=== PATIENT | female | born 1935 | race Caucasian/White ===

== ENCOUNTER → 2017-06-22 | Outpatient (CLI) | payer MEDICARE ==
[~2017-06-22] MED LIST: ACTONEL150 MG PO; ADULT LOW DOSE81 MG PO; ALENDRONATE SOD35 MG PO; ALPRAZOLAM 0.0.25 M1 PO; APAP500 PO; B COMPLEX-VITA1 EACH; BUTRANS1 EAC1 TD; CALCIUM +D & M1 EACH PO; CALCIUM 500 +1 EAC5 PO; CARDIZEM CD120 MG PO; CARDIZEM CD240 MG PO; CARVEDILOL12.5 MG PO; CEFUROXIME250 MG PO; CELEBREX 200 M200 MG PO; COLACE 100 MG100 MG PO; COUMADIN 1MG TAB1 M1 PO; COUMADIN 2 MG TA2 M1 PO; COUMADIN 5 MG TA5 M1 PO; CYCLOBENZAPRINE5 MG PO; CYMBALTA30 MG PO; DIGOXIN250 MCG PO; DILTIAZEM 24HR180 M2 PO; FENTANYL PA12 MCG/H1 TP; FENTANYL TRANSDERM; FISH OIL 1,0001 EAC5 PO; FLORASTOR250 MG PO; HYDROCODON-ACE1 EAC7 PO; HYDROCODONE-AP1 EAC6 PO; IMODIUM A-D2 MG PO; IRON325 PO; KLOR-CON 1010 MEQ PO; LASIX 20 MG TAB20 MG; LASIX 40 MG TAB40 M2 PO; MACROBID 100 M100 M1 PO; MACULAR HEALTH1 EAC1 PO; MILK OF MA2400 MG/10 PO; MIRALAX17 GM PO; MIRALAX255 GM PO; MURINE EAR WAX15 ML; NORCO 10-325 T1 EACH PO; NORCO 5-325 TA1 EACH PO; OXYCODONE HCL 55 MG PO; OXYCODONE HCL10 MG PO; PRAVACHOL40 MG PO; PREMARIN VAGI42.5 G1; PREMARIN VAGI42.5 G1 TOP; PREMARIN0.625 MG PO; PROLIA60 MG/1 ML; PROLIA60 MG/1 ML SUBQ; PYRIDIUM200 MG PO; RECLAST 55 MG/100 M; REMERON15 MG PO; TOPROL XL50 MG; TYLENOL EXTRA500 MG PO; XARELTO15 MG PO; XIFAXAN550 M1 PO
== END ==
LOC: M.RAD 06-11 09:00
DX: N91.2 Amenorrhea, unspecified (principal); M47.896 Other spondylosis, lumbar region; Z78.0 Asymptomatic menopausal state

== ENCOUNTER → 2018-03-10 | Outpatient (CLI) | payer MEDICARE | LOC: M.RAD 10:41 | DX: Z12.31 Encounter for screening mammogram for malignant neoplasm of breast (principal) ==

== ENCOUNTER 2018-04-03 10:59 | Inpatient (IN) | payer MEDICARE ==
[~2018-04-03] VITALS: Ht 160 cm; Wt 57.9 kg
[~2018-04-03 10:59] MED LIST changes: -ALENDRONATE SOD35 MG PO; -CEFUROXIME250 MG PO; -CYMBALTA30 MG PO; -DIGOXIN250 MCG PO; -FLORASTOR250 MG PO; -MACULAR HEALTH1 EAC1 PO; -OXYCODONE HCL10 MG PO; -REMERON15 MG PO; -TYLENOL EXTRA500 MG PO
[2018-04-03 11:01] VITALS: BP 152/52
[2018-04-03] MEDS ORDERED: OXYCODONE HCL10 MG PO (11:08)
[2018-04-03] MEDS ORDERED: CYMBALTA30 MG PO (11:09)
[2018-04-03] MEDS ORDERED: MACULAR HEALTH1 EAC1 PO (11:09)
[2018-04-03] MEDS ORDERED: COUMADIN 1MG TAB1 M1 PO (11:09)
[2018-04-03] MEDS ORDERED: TYLENOL EXTRA500 MG PO (11:10)
[2018-04-03] MEDS ORDERED: ALENDRONATE SOD35 MG PO (11:11)
[2018-04-03 11:47] LABS: HEMATOCRIT 29.6 % (37.0-47.0); HEMOGLOBIN 9.9 gm/dL (12.0-15.0); MCH 32.7 pg (26.0-34.0); MCHC 33.4 g/dL (28.0-37.0); MCV 98.1 fL (80.0-100.0); MPV 8.2 fl. (7.2-11.1); NUCLEATED RBCS 0 /100WBC; PLATELET COUNT* 161 thou/uL (150-400); RBC 3.02 mil/uL (4.20-5.00); RDW-CV 13.5 % (10.5-14.5); WBC 7.2 thou/uL (4.0-11.0)
[2018-04-03 12:04] LABS: INR 1.3; PROTIME 13.4 Seconds (9.20-11.50)
[2018-04-03 12:05] LABS: ANION GAP 9 mmol/L (7-16); BUN 11 mg/dL (7-18); CALCIUM 8.8 mg/dL (8.5-10.1); CHLORIDE 100 mmol/L (98-107); CO2 26 mmol/L (21-32); CREATININE 0.9 mg/dL (0.6-1.3); GLUCOSE 99 mg/dL (70-99); SODIUM 135 mmol/L (136-145)
[2018-04-03 12:10] LABS: INFLUENZA A ANTIGEN None Detected (None Detect); INFLUENZA B ANTIGEN None Detected (None Detect)
[2018-04-03 12:11] LABS: ALBUMIN 3.3 g/dL (3.4-5.0); ALKALINE PHOSPHATASE 194 U/L (46-116); LIPASE 48 U/L (73-393); NT-PRO BRAIN NAT PEPTIDE 4341 pg/mL (<300); SGOT 30 U/L (15-37); SGPT 26 U/L (30-65); TOTAL BILIRUBIN 1.1 mg/dL (<0.1-1.0); TOTAL PROTEIN 7.1 g/dL (6.4-8.2); TROPONIN-I LEVEL <0.06 ng/mL (<0.06)
[2018-04-03 12:38] LABS: ABSOLUTE EOSINOPHILS 0.1 thou/uL (0.0-0.7); ABSOLUTE LYMPHOCYTES 0.7 thou/uL (0.8-5.3); ABSOLUTE NEUTROPHILS 5.4 thou/uL (1.6-8.1); ANISOCYTOSIS 1+; PLATELET ESTIMATE ADEQUATE; POIKILOCYTOSIS 1+
[2018-04-03 13:29] VITALS: BP 150/67
[2018-04-03 13:40] VITALS: BP 155/67
[2018-04-03] MEDS ORDERED: PRAVACHOL40 MG PO (13:56)
[2018-04-03] MEDS ORDERED: DIGOXIN250 MCG PO (13:57)
[2018-04-03] MEDS ORDERED: MIRALAX17 GM PO (13:57)
[2018-04-03 14:16] LABS: URINE BILIRUBIN NEGATIVE (Negative); URINE BLOOD NEGATIVE (Negative); URINE CLARITY CLEAR; URINE COLOR YELLOW; URINE GLUCOSE-RANDOM NEGATIVE (Negative); URINE KETONES 1+ (Negative); URINE LEUKOCYTES NEGATIVE (Negative); URINE NITRITE NEGATIVE (Negative); URINE PROTEIN NEGATIVE (Negative); URINE SPECIFIC GRAVITY <= 1.005 (1.005-1.030); URINE UROBILINOGEN 0.2 E.U./dl (0.2-1.0)
[2018-04-03 16:14] VITALS: BP 126/84
[2018-04-03 17:24] LABS: % SATURATION 3 % (20-39); IRON 9 ug/dL (50-175)
--- NOTE | 2018-04-03 18:23 | NUR ---
PATIENT ARRIVED FROM ER THIS AFTERNOON. PATIENT SETTLED TO ROOM AND HISTORY, ASSESSMENT AND VITALS TAKEN AND DOCUMENTED. PATIENT HAS HAD COMPLAINTS OF BACK AND GENERALIZED PAIN. PHYSICIAN NOTIFIED. PATIENT IS UP STANDBY ASSIST. PATIENT ON OXYGEN 2L/NC. PATIENT HAS POOR APPETITE AND REFUSED MEALS. PATIENT DENIES ANY NEEDS AT THIS TIME. CALL LIGHT WITHIN REACH. WILL CONTINUE TO MONITOR.
[2018-04-03 20:32] VITALS: BP 133/57
[2018-04-04 02:00] VITALS: BP 134/53
--- NOTE | 2018-04-04 05:03 | NUR ---
ALERT AND ORIENTED X3. UP WITH STAND BY ASSIST TO BEDSIDE COMMODE. FORGETFUL AT TIMES. BED AND CHAIR ALARM USED. INCREASE CRACKLES NOTED IN LUNG BASES. DR NOTIFIED AND IVF D/C. HAVING SOME ANXIETY LAST NIGHT AND DR NOTIFIED AND MEDICATION GIVEN. CONTINUES TO RECEIVE BREATHING TX. GETTING IV ANTIBIODICS. CALL LIGHT WITHIN REACH.
--- NOTE | 2018-04-04 06:40 | NUR ---
024 DR WAS NOTIFIED OF PATIENT'S CRACKLING LUNG SOUNDS AND LIST OF ALL THE HOME MEDICATIONS THAT HAD NOT BEEN ORDERED YET (INCLUDING LASIX). HE SAID TO D/C IVF AND THAT HOME MEDICATIONS COULD BE ADDRESSED IN AM. AT 0600 PATIENT C/O FEELING SOA. O2 SAT CHECKED AND 94%. O2 APPLIED AT 2L/NC AND PATIENT PUT IN UPRIGHT CHAIR. CONTINUES TO HAVE LOT OF CRACKLES IN RIGHT LOBES OF LUNGS. PATIENT STATED SHE WAS FEELING BETTER NOW. RT ALSO CALLED FOR BREATHING TX. WILL CONTINUE TO MONITOR.
--- NOTE | 2018-04-04 07:00 | NUR ---
BLADDER SCAN SHOWED 574. PATIENT UP TO BEDSIDE COMMODE AND THEN VOIDED WELL.
[2018-04-04 08:15] VITALS: BP 115/49
[2018-04-04 17:10] VITALS: BP 123/58
--- NOTE | 2018-04-04 19:28 | NUR ---
PATIENT RESTING IN BED. PATIENT HAS SLEPT MOST OF DAY. PATIENT DENIES ANY PAIN. PATIENT IS UP STANDBY TO COMMODE. PATIENT HAS POOR APPETITE. PATIENT IS ON ROOM AIR. PATIENT DENIES ANY NEEDS AT THIS TIME. CALL LIGHT WITHIN REACH. WILL CONTINUE TO MONITOR.
[2018-04-04 20:52] VITALS: BP 130/50
[2018-04-05] VITALS: BP 128/37
[2018-04-05 04:20] LABS: ABSOLUTE EOSINOPHILS 0.1 thou/uL (0.0-0.7); ABSOLUTE LYMPHOCYTES 1.7 thou/uL (0.8-5.3); ABSOLUTE MONOCYTES 1.1 thou/uL (0.0-1.2); ABSOLUTE NEUTROPHILS 5.8 thou/uL (1.6-8.1); BASOPHILS 0.3 %; EOSINOPHILS 0.6 %; HEMATOCRIT 27.7 % (37.0-47.0); HEMOGLOBIN 9.2 gm/dL (12.0-15.0); LYMPHOCYTES 19.2 %; MCH 32.8 pg (26.0-34.0); MCHC 33.3 g/dL (28.0-37.0); MCV 98.4 fL (80.0-100.0); MONOCYTES 12.7 %; MPV 8.8 fl. (7.2-11.1); NUCLEATED RBCS 0 /100WBC; PLATELET COUNT* 170 thou/uL (150-400); POLYS 67.2 %; RBC 2.82 mil/uL (4.20-5.00); RDW-CV 13.4 % (10.5-14.5); WBC 8.6 thou/uL (4.0-11.0)
--- NOTE | 2018-04-05 04:50 | NUR ---
ALERT AND ORIENTED X4. UP WITH STAND BY ASSIST OF 1 AND WALKER. RESTING QUIETLY ON HOURLY ROUNDS. O2 SAT REMAINS IN 9O'S ON ROOM AIR. CONTINUES TO HAVE CRACKLES HEARD IN RIGHT LUNG [place]. CONTINUES TO RECEIVE BREATHING TREATMENTS. CALL LIGHT WITHIN REACH. WILL CONTINUE TO MONITOR.
[2018-04-05 08:15] VITALS: BP 113/48
--- NOTE | 2018-04-05 10:00 | EKG ---
[place] [address] ELECTROCARDIOGRAM REPORT Name: AGATA FERNANDEZ Room: [address] ADM IN .R.#: [id number] Admission: 04/03/18 Attend Phys: Yuliya Smith Discharge: Date of : 35 Report #: [id number] THIS REPORT FOR: //name// [facility] ED Test Date: 2018-04-03 Test Time: 11:04:52 Pat Name: AGATA FERNANDEZ Department: Room: [facility] Gender: F Structural Test Engineer: ACE : 1935 Requested By: Carlos Ruiz Order Number: [id number] MD: Neftaly Acuña Measurements Intervals [place] Rate: 58 P: SC: QRS: -12 QRSD: 86 T: QT: 583 QTc: 573 Interpretive Statements Atrial fibrillation Multiple ventricular premature complexes RSR' in V1 or V2, probably normal variant Nonspecific repol abnormality, diffuse leads Prolonged QT interval Baseline wander in lead(s) V5 Compared to ECG 08/10/2016 17:39:25 Ventricular premature complex(es) now present rate slowed Electronically Signed On 04-05-2018 10:00:02 GEROPSYCHOLOGIST by Neftaly Acuña [email or web address] <ELECTRONICALLY SIGNED> By: Neftaly Acuña MD, FACC 04/05/18 1000 1104 1104 Neftaly Acuña MD, FACC /EPI
[2018-04-05 14:40] VITALS: BP 140/38
[2018-04-05 16:00] VITALS: BP 153/55
--- NOTE | 2018-04-05 16:06 | 2DMMODE ---
[place] [address] 2 D/M-MODE ECHOCARDIOGRAM Name: AGATA FERNANDEZ Room: [address] IN .R.#: [id number] Admission: 04/03/18 Attend Phys: Adi Luong Discharge: Date of : 35 Date of Service: 04/05/18 1606 Report #: [id number] THIS REPORT FOR: //name// APPROVED REPORT Study performed: 04/05/2018 13:49:38 EXAM: Comprehensive 2D, Doppler, and color-flow Echocardiogram Patient Location: Bedside BSA: 1.58 HR: 50 bpm BP: 128/37 mmHg Other Information Study Quality: Fair Indications Dyspnea 2D Dimensions IVSd: 11.36 (7-11mm) LVOT Diam: 15.88 (18-24mm) LVDd: 50.03 mm PWd: 9.57 (7-11mm) Ascending Ao: 27.06 (22-36mm) LVDs: 36.42 (25-40mm) Aortic Root: 26.23 mm Volumes Left Atrial Volume (Systole) LA ESV Index: 43.00 mL/m2 Aortic Valve AoV Peak Héctor.: 1.58 m/s AO Peak Gr.: 9.97 mmHg LVOT Max P.00 mmHg AO Mean Gr.: 4.95 mmHg LVOT Mean P.06 mmHg LVOT Max V: 1.00 m/s AO V2 VTI: 28.37 cm LVOT Mean V: 0.66 m/s JERONIMO (VTI): 1.43 cm2 LVOT V1 VTI: 20.53 cm Mitral Valve E/A Ratio: 2.33 MV Decel. Time: 142.73 ms MV E Max Héctor.: 1.15 m/s MV PHT: 41.39 ms MVA (PHT): 5.32 [place] [address] 2 D/M-MODE ECHOCARDIOGRAM Name: AGATA FERNANDEZ Room: [address] IN [facility]#: [id number] Admission: 04/03/18 Attend Phys: Adi Luong Discharge: Date of : 35 Date of Service: 04/05/18 1606 Report #: [id number] TDI E/Lateral E': 6.76 E/Medial E': 10.45 Medial E' Héctor.: 0.11 m/s Lateral E' Héctor.: 0.17 m/s Pulmonary Valve PV Peak Héctor.: 0.99 m/s PV Peak Gr.: 3.95 mmHg Tricuspid Valve RAP Estimate: 5.00 mmHg TR Peak Gr.: 52.35 mmHg RVSP: 57.35 mmHg PA Pressure: 57.35 mmHg Left Ventricle The left ventricle is normal size. There is normal LV segmental wall motion. There is normal left ventricular wall thickness. Left ventricular systolic function is normal. The left ventricular ejection fraction is within the normal range. LVEF is 50-55%. Right Ventricle The right ventricle is normal size. The right ventricular systolic function is normal. Atria Left atrium is moderately dilated. Right atrium is dilated. Aortic Valve The Aortic valve is sclerotic. No aortic regurgitation is present. There is no aortic valvular stenosis. Mitral Valve The mitral valve is normal in structure. Mild mitral regurgitation. No evidence of mitral valve stenosis. Tricuspid Valve The tricuspid valve is normal in structure. Moderate to severe tricuspid regurgitation. estimated pa pressure 60 mm Hg Pulmonic Valve Pulmonic valve is not well visualized. There is no pulmonic valvular regurgitation. Great Vessels The aortic root is normal in size. IVC is normal in size and collapses >50% [place] [address] 2 D/M-MODE ECHOCARDIOGRAM Name: AGATA FERNANDEZ Room: [address] IN [facility]#: [id number] Admission: 04/03/18 Attend Phys: Adi Luong Discharge: Date of : 35 Date of Service: 04/05/18 1606 Report #: [id number] Pericardium There is no pericardial effusion. <Conclusion> LVEF is 50-55%. Left atrium is moderately dilated. The Aortic valve is sclerotic. Mild mitral regurgitation. Moderate to severe tricuspid regurgitation. estimated pa pressure 60 mm Hg <ELECTRONICALLY SIGNED> By: Neftaly Acuña MD, FACC 04/05/181605 05 05 Neftaly Acuña MD, FACC /INF
--- NOTE | 2018-04-05 19:33 | NUR ---
PATIENT RESTING IN BED. PATIENT HAS COMPLAINTS OF GENERALIZED PAIN. PATIENT HAS BEEN UP TO CHAIR AND BATHROOM TODAY. PATIENT IS UP STANDBY ASSIST. PATIENT HAS HAD FAIR APPETITE. PATIENT HAS COUGH AND SORE THROAT, TREATED ADEQUAELY WITH MEDICATION. PATIENT DENIES ANY NEEDS AT THIS TIME. CALL LIGHT WITHIN REACH. WILL CONTINUE TO MONITOR.
[2018-04-05 20:45] VITALS: BP 107/35
--- NOTE | 2018-04-06 05:39 | NUR ---
PATIENT HAS SLEPT WELL THROUGHOUT MOST OF THE NIGHT. PAIN CONTROLLED WITH ORAL PAIN MEDICATION AND CHARTED. VSS ON RA. PATIENT IS UP WITH SBA TO THE BATHROOM AND USES CALL LIGHT APPROPRIATELY. IV IN LEFT AC-SL. PATIENT INSTRUCTED TO USE CALL LIGHT WHEN NEEDING ASSISTANCE. FALL PRECAUTIONS IN PLACE AND HOURLY ROUNDS MADE. WILL CONTINUE WITH PLAN OF CARE AND NURSING TO MONITOR.
[2018-04-06 08:00] VITALS: BP 116/49
--- NOTE | 2018-04-06 11:05 | NUR ---
SW met with pt to complete initial assessment, introduce self, and SW role. Pt alert and oriented. Pt said she lives in [facility]. Pt has nieces for support who live nearby her. Pt has hx of SMV, Hx CHCS, and has a rollator walker. Pt said she wasn't feeling very well this morning but she said she is beginning to feel better. SW to continue to follow to assist with safe dc planning.
[2018-04-06 16:00] VITALS: BP 131/44
--- NOTE | 2018-04-07 05:40 | NUR ---
PT RESTED WELL TROUGHOUT HOURLY ROUNDS, NO CONCERNS VOICED , PO MEDICATION GIVEN X 2 AND CONTROLLINIG PAIN WELL, WILL CONITUNE WITH CURRENT PLAN OF CARE.
[2018-04-07 08:00] VITALS: BP 142/60
--- NOTE | 2018-04-07 11:51 | CON ---
[address] [address] CONSULTATION Name: JUSTICE FERNANDEZOTHY Jason Room: [address] IN .R.#: [id number] Admission: 04/03/18 Attend Phys: Yuliya Smith Discharge: Date of : 35 Report #: [id number] THIS REPORT FOR: //name// CC: Ajith Luong Infectious Disease Consultation ATTENDING PHYSICIAN: Adi Luong DO REASON FOR EVALUATION: Pneumonitis. HISTORY OF PRESENT ILLNESS: Chart reviewed, patient examined. This is an 82-year-old with known history of osteoporosis, has multiple vertebral compression fractures, former smoker. He has a cardiomyopathy as well, was admitted with complaints of persistent cough, some of which has been productive, some dyspnea, also had some loose stools with associated abdominal-related complaints. Initial chest x-ray showed interstitial opacities within the right lung. Influenza antigen was negative. Lactic acid was 1.1. Urinalysis unremarkable. Blood cultures are sterile thus far. Sputum culture with initial result of Gram-positive cocci in pairs. She was empirically started on azithromycin and ceftriaxone. She does complain of additional issue of left hip pain. ALLERGIES: PENICILLIN, CODEINE, as well as TRAMADOL. MEDICATIONS: Include tetrahydrozoline, pseudoephedrine, ondansetron, guaifenesin, azithromycin, atorvastatin, warfarin, oxycodone, duloxetine, ceftriaxone, alprazolam. PAST MEDICAL HISTORY: Hypertension, atrial fibrillation, history of congestive heart failure, anxiety, IBS, osteoporosis, chronic sinusitis, reflux. SOCIAL HISTORY: Former smoker. No ethanol, no illicit drug use. FAMILY HISTORY: Noncontributory. REVIEW OF SYSTEMS: As above. PHYSICAL EXAMINATION: GENERAL: She appears chronically ill, undernourished. She is quite distressed. VITAL SIGNS: Temperature 98, pulse 66, respirations 16, blood pressure 107/35. SKIN: Warm, dry, no rashes. HEENT: She has got nasal cannula oxygen in place. NECK: Supple. LUNGS: Diminished breath sounds, primarily right-sided basilar crackles. HEART: Regular. [place] [address] CONSULTATION Name: AGATA FERNANDEZ Room: [address]#: [id number] Admission: 04/03/18 Attend Phys: Yuliya Smith Discharge: Date of : 35 Report #: [id number] ABDOMEN: Soft. GENITOURINARY: Deferred. RECTAL: Deferred. LABORATORY DATA: Sputum culture as described above. Echo has wxmnbvay-[id number] tricuspid regurgitation. PA pressure of 60 mmHg. Ejection fraction 50%-55%. Chest x-ray as noted. Acute on chronic changes. CBC: White count of 8.6, H and H 9.2 and 27.7, platelets of 170. Blood cultures sterile thus far. Electrolytes: Sodium 135, potassium 4.0, chloride 100, bicarbonate is 26, BUN and creatinine 11 and 0.9, total bilirubin 1.1, albumin 3.3, total protein 7.1. ASSESSMENT: Pneumonitis. The patient is quite tenuous to begin with. Gram-positive diplococci. There is question of pneumococcus. It should be well covered. I think standard therapy with azithromycin and ceftriaxone should be adequate. We will monitor expectantly, particularly for adverse drug effects. She is having loose stools, which she attributes to some MiraLax. We have to monitor expectantly for any evidence of nosocomial related infectious complications. <ELECTRONICALLY SIGNED> By: Jim Zapata MD 04/07/18 1151 1300 0508Josecandice Zapata MD /nt
[2018-04-07 16:00] VITALS: BP 115/32
[2018-04-08 00:08] VITALS: BP 120/46
[2018-04-08 04:05] VITALS: BP 133/62
--- NOTE | 2018-04-08 05:32 | NUR ---
ASSESSMENT COMPLETE. PT SLEPT MOST OF THE NIGHT. COUGH MEDICATION GIVEN ONCE NEEDED. PT IS ON ROOM AIR WITH [place] SATS. PT HAS IV IN RIGHT FOREARM, SALINE LOCKED. SKIN INTACT. PT IS FALL RISK, BED ALARM ON. PT TURNS SELF IN BED. STANDBY ASSIST TO BATHROOM. PT DENIES PAIN AND N/V AT THIS TIME. SEE ASSESSMENT AND VITALS FOR OTHER DETAILS. CALL LIGHT WITHIN REACH, WILL CONTINUE PLAN OF CARE
[2018-04-08 08:30] VITALS: BP 128/61
[2018-04-08 16:00] VITALS: BP 101/44
--- NOTE | 2018-04-08 18:17 | NUR ---
PAIN MANAGEMENT MODIFIED, ANTICIPATE RESULT BY TOMORROW MORNING. GWENDOLYN ORAL MEDS WELL W/O S/S ADR. CARE PLAN REVIEWED, DENIES QUESTIONS, CONT TO BE UP W/ SBA X 1, CALL LIGHT IN REACH CONT POC.
[2018-04-09 00:02] VITALS: BP 134/40
--- NOTE | 2018-04-09 05:24 | NUR ---
PATIENT SLEPT WELL DURING THIS SHIFT. PT AT 97% ON RA. VITALS WNL. LUNG SOUNDS DIMINISHED. PT HAS NO IV ACCESS. PT USES CALL LIGHT APPROPRIATELY FOR ASSISTANCE TO THE BATHROOM. PT C/O GENERALIZED PAIN AND TWO TYLENOL GIVEN. PT WENT BACK TO SLEEP AFTER TAKING. PT DENIES PAIN/NAUSEA AT THIS TIME. FREQUENTLY USED ITEMS AND CALL LIGHT WITHIN REACH. WILL CONTINUE TO MONITOR.
[2018-04-09 07:35] VITALS: BP 131/53
--- NOTE | 2018-04-09 07:58 | NUR ---
RECEIVED REPORT FROM ROVERTO AND ASSUMED CARE OF PT @ 5295.PT IS A/O X4,VSS,MED-SURG STATUS.ASSESSMENT CHARTED.NO IV ACCESS.PT IS CALM AND COOPERATIVE WITH NO C/O PAIN AT TIME OF ASSESSMENT.PT IS UP WITH ONE ASSIST AND WALKER TO BATHROOM.PT LEFT RESTING IN RECLINER WITH CALL LIGHT AND FALL PRECAUTIONS IN PLACE.WILL CONTINUE TO MONITOR.
[2018-04-09 09:07] LABS: INR 1.2; PROTIME 12.2 Seconds (9.20-11.50)
[2018-04-09 12:18] LABS: POTASSIUM 3.5 mmol/L (3.5-5.1)
[2018-04-09 13:23] LABS: ABSOLUTE EOSINOPHILS 0.1 thou/uL (0.0-0.7); ABSOLUTE LYMPHOCYTES 1.2 thou/uL (0.8-5.3); ABSOLUTE MONOCYTES 0.6 thou/uL (0.0-1.2); ABSOLUTE NEUTROPHILS 5.5 thou/uL (1.6-8.1); BASOPHILS 0.4 %; EOSINOPHILS 1.4 %; HEMATOCRIT 33.4 % (37.0-47.0); HEMOGLOBIN 10.8 gm/dL (12.0-15.0); LYMPHOCYTES 15.7 %; MCH 31.4 pg (26.0-34.0); MCHC 32.2 g/dL (28.0-37.0); MCV 97.6 fL (80.0-100.0); MONOCYTES 8.6 %; MPV 7.8 fl. (7.2-11.1); NUCLEATED RBCS 0 /100WBC; PLATELET COUNT* 297 thou/uL (150-400); POLYS 73.9 %; RBC 3.42 mil/uL (4.20-5.00); RDW-CV 13.7 % (10.5-14.5); WBC 7.4 thou/uL (4.0-11.0)
[2018-04-09 16:00] VITALS: BP 165/42
--- NOTE | 2018-04-09 17:12 | NUR ---
VSS.MED-SURG STATUS.STOOL SAMPLE COLLECTED AND SENT TO LAB-FOR CDIFF. SPECIAL ISOLATION INTIATED. PT WORKED WITH PHYSICAL THERAPY AND AMBULATED IN THE HALLWAY.PT INFORMED OF PLAN OF CARE AND COMMUNICATES UNDERSTANDING.HOURLY ROUNDING COMPLETED FOR PT SAFETY.CALL LIGHT AND FALL PRECAUTIONS IN PLACE.WILL CONTINUE TO MONITOR FOR DURATION OF SHIFT.
[2018-04-09 20:00] VITALS: BP 138/51
--- NOTE | 2018-04-10 07:00 | NUR ---
PATIENT PARTIALLY PROGRESSING TOWARDS GOALS: PATIENT STATES SHE HAD DIARHHEA THROUGHOUT SHIFT, HOWEVER, NONE WAS OBSERVED BY STAFF WHO ASSISTED HER TO BATHROOM. CDIFF PRECAUTIONS REMAIN IN PLACE, SAMPLE PENDING. PATIENT HAD C/O NAUSEA, NO EMESIS. MEDS ADMINISTERED PER JUL. PATIENT UP SBA W/ WALKER. PATIENT CONTINUES TO STATES SHE IS "WEAK AND FATIGUED." PATIENT WAS UABLE TO SLEEP DESPITE COMFORT MEASURES PROVIDED AND MEDICATIONS ADMINISTERED. HOURLY ROUNDING OBSERVED. CALL LIGHT WITHIN REACH
[2018-04-10 08:00] VITALS: BP 133/64
[2018-04-10 16:00] VITALS: BP 137/55
--- NOTE | 2018-04-10 18:42 | NUR ---
PT REPORTS NO BM THIS SHIFT, CONT OF URINE, DISCOMFORT MANAGED WELL W/ ORAL/TOPICAL MEDICATION. UP W/ SBA, REPORTS THAT SHE IS READY TO GO HOME.
[2018-04-10 20:00] VITALS: BP 125/43
[2018-04-11 04:10] LABS: HEMATOCRIT 31.7 % (37.0-47.0); HEMOGLOBIN 10.4 gm/dL (12.0-15.0); MCHC 32.7 g/dL (28.0-37.0); MCV 97.9 fL (80.0-100.0); MPV 8.1 fl. (7.2-11.1); RBC 3.24 mil/uL (4.20-5.00); RDW-CV 13.6 % (10.5-14.5); WBC 8.5 thou/uL (4.0-11.0)
[2018-04-11 04:34] LABS: CREATININE 0.9 mg/dL (0.6-1.3); MAGNESIUM 1.6 mg/dL (1.8-2.4); POTASSIUM 3.3 mmol/L (3.5-5.1); TOTAL BILIRUBIN 0.6 mg/dL (<0.1-1.0); TOTAL PROTEIN 5.9 g/dL (6.4-8.2)
--- NOTE | 2018-04-11 04:48 | NUR ---
PATIENT DENIES PAIN/DISCOMFORT THIS SHIFT. NO BM, PATIENT CONT. OF URINE. VOIDING APPROPRIATELY. PATIENT SLEPT WELL THIS SHIFT. PATIENT HAS POOR APPETITE, TRIED TO ENCOURAGE PATIENT TO DRINK AN ENSURE. PATIENT SAID "MAYBE TOMORROW." HOURLY ROUNDING OBSERVED. CALL LIGHT WITHIN REACH
[2018-04-11 08:00] VITALS: BP 133/58
[2018-04-11 15:39] VITALS: BP 133/51
[2018-04-11 23:13] VITALS: BP 147/58
[2018-04-12 03:31] LABS: HEMATOCRIT 32.8 % (37.0-47.0); HEMOGLOBIN 10.8 gm/dL (12.0-15.0); MCHC 33.1 g/dL (28.0-37.0); MCV 96.6 fL (80.0-100.0); RBC 3.39 mil/uL (4.20-5.00); RDW-CV 13.5 % (10.5-14.5); WBC 8.6 thou/uL (4.0-11.0)
[2018-04-12 03:51] LABS: CALCIUM 9.3 mg/dL (8.5-10.1); MAGNESIUM 1.8 mg/dL (1.8-2.4); POTASSIUM 3.5 mmol/L (3.5-5.1); TOTAL BILIRUBIN 0.5 mg/dL (<0.1-1.0); TOTAL PROTEIN 6.1 g/dL (6.4-8.2)
--- NOTE | 2018-04-12 05:26 | NUR ---
ASSUMED CARE AT 1930. PATIENT RESTING IN BED. DENIED PAIN. VOIDED PER TOILET. MELATONIN AT HS, SEE MAR. C/O NOT BEING ABLE TO SLEEP DESPITE VISUALIZED ASLEEP ON HOURLY ROUNDS AND AWAKENED FOR LABS. HOURLY ROUNDS CONTINUE. CALL LITE IN REACH. BED LOW AND LOCKED.
[2018-04-12 08:00] VITALS: BP 139/67
[2018-04-12] MEDS ORDERED: REMERON15 MG PO (16:04)
[2018-04-12] MEDS ORDERED: CEFUROXIME250 MG PO (16:18)
[2018-04-12] MEDS ORDERED: FLORASTOR250 MG PO (16:21)
[2018-04-12 16:41] VITALS: BP 139/67
[2018-04-12 16:45] VITALS: BP 139/77
--- NOTE | 2018-04-12 17:00 | NUR ---
Pt to dc to SNF today and preferred [facility]. IAN sent referral to [facility] and spoke with Basia and then Cecilia who confirmed that [facility] can accept pt for SNF. IAN informed pt and pt nurse. Basia called back and said that she scheduled transportation for 6:00 pm. IAN faxed final dc orders/med list for continuation of care to [facility].
--- NOTE | 2018-04-12 17:03 | NUR ---
PATIENT TO TRANSFER TO [facility] FOR SKILLED STAY. CALL ATTEMPT X 2 TO MALLIKA AT CARDIOLOGY SERVICES, NO CALL RETURNED, MESSAGE LEFT FOR APPT TO BE MADE [facility] CARD[facility].. REPORT GIVEN TO RECEIVING NURSE, WILL BE TRANSPORTED AT 1800.
== END 2018-04-12 18:15 | DRG 177 ==
LOC: M.ERS 10:59 → M.TBA-ER 12:58 → M.3W 12:58
PROVIDERS: Emergency Medicine; Family Medicine; Internal Medicine; ADMIT Internal Medicine
DX: J69.0 Pneumonitis due to inhalation of food and vomit (principal); I50.33 Acute on chronic diastolic (congestive) heart failure; I42.9 Cardiomyopathy, unspecified; I11.0 Hypertensive heart disease with heart failure; I48.91 Unspecified atrial fibrillation; F41.9 Anxiety disorder, unspecified; K58.9 Irritable bowel syndrome, unspecified; M81.0 Age-related osteoporosis without current pathological fracture; D64.9 Anemia, unspecified; R19.7 Diarrhea, unspecified; E87.6 Hypokalemia; F32.9 Major depressive disorder, single episode, unspecified; K21.9 Gastro-esophageal reflux disease without esophagitis; M19.90 Unspecified osteoarthritis, unspecified site; Z87.891 Personal history of nicotine dependence; Z87.81 Personal history of (healed) traumatic fracture; Z79.01 Long term (current) use of anticoagulants; Z79.899 Other long term (current) drug therapy; Z88.5 Allergy status to narcotic agent; Z88.0 Allergy status to penicillin; Z88.8 Allergy status to other drugs, medicaments and biological substances; Z82.62 Family history of osteoporosis

== ENCOUNTER 2018-09-09 10:44 | Emergency (ER) | payer OTHER, MEDICARE ==
[~2018-09-09] VITALS: Ht 162.6 cm; Wt 49.9 kg
[~2018-09-09 10:44] MED LIST changes: +ALENDRONATE SOD35 MG PO; +CEFUROXIME250 MG PO; +CYMBALTA30 MG PO; +DIGOXIN250 MCG PO; +FLORASTOR250 MG PO; +MACULAR HEALTH1 EAC1 PO; +OXYCODONE HCL10 MG PO; +REMERON15 MG PO; +TYLENOL EXTRA500 MG PO
[2018-09-09] MEDS ORDERED: ROXICODONE5 M2 PO (12:16)
[2018-09-09 12:30] VITALS: BP 144/65
== END 2018-09-09 12:30 | disposition home or self-care (01) ==
LOC: M.ERS 10:44
DX: S80.01XA Contusion of right knee, initial encounter (principal); S80.02XA Contusion of left knee, initial encounter; S90.31XA Contusion of right foot, initial encounter; I11.0 Hypertensive heart disease with heart failure; I50.9 Heart failure, unspecified; F41.9 Anxiety disorder, unspecified; I48.91 Unspecified atrial fibrillation; K58.9 Irritable bowel syndrome, unspecified; M81.0 Age-related osteoporosis without current pathological fracture; J32.9 Chronic sinusitis, unspecified; K21.9 Gastro-esophageal reflux disease without esophagitis; M19.90 Unspecified osteoarthritis, unspecified site; Z88.0 Allergy status to penicillin; Z88.8 Allergy status to other drugs, medicaments and biological substances; Z88.5 Allergy status to narcotic agent; Z88.6 Allergy status to analgesic agent; W01.0XXA Fall on same level from slipping, tripping and stumbling without subsequent striking against object, initial encounter; Y92.59 Other trade areas as the place of occurrence of the external cause; Y93.89 Activity, other specified; Y99.8 Other external cause status

== ENCOUNTER → 2018-10-21 | Outpatient (CLI) | payer MEDICARE ==
[~2018-10-21] MED LIST changes: +ROXICODONE5 M2 PO
== END ==
LOC: M.CT 12:59
DX: K86.89 Other specified diseases of pancreas (principal); K57.30 Diverticulosis of large intestine without perforation or abscess without bleeding; M47.815 Spondylosis without myelopathy or radiculopathy, thoracolumbar region; Z88.0 Allergy status to penicillin; Z88.8 Allergy status to other drugs, medicaments and biological substances

== ENCOUNTER → 2018-11-26 | Outpatient (CLI) | payer MEDICARE | LOC: M.MRI 11-22 16:03 | DX: M47.24 Other spondylosis with radiculopathy, thoracic region (principal); M47.26 Other spondylosis with radiculopathy, lumbar region; M81.0 Age-related osteoporosis without current pathological fracture; Z79.891 Long term (current) use of opiate analgesic ==

== ENCOUNTER 2019-12-01 22:43 | Inpatient (IN) | payer MEDICARE ==
[~2019-12-01] VITALS: Ht 157.5 cm; Wt 49.4 kg
[~2019-12-01 22:43] MED LIST changes: -CEFUROXIME250 MG PO; -REMERON15 MG PO
[2019-12-01 22:44] VITALS: BP 192/72
[2019-12-01] MEDS ORDERED: OMEPRAZOLE40 MG PO (23:03)
[2019-12-01 23:15] LABS: ABSOLUTE EOSINOPHILS 0.2 thou/uL (0.0-0.7); ABSOLUTE LYMPHOCYTES 2.8 thou/uL (0.8-5.3); ABSOLUTE MONOCYTES 0.9 thou/uL (0.0-1.2); BASOPHILS 0.5 %; EOSINOPHILS 2.4 %; HEMATOCRIT 35.4 % (37.0-47.0); LYMPHOCYTES 40.4 %; MCH 32.5 pg (26.0-34.0); MCHC 33.9 g/dL (28.0-37.0); MONOCYTES 13.1 %; MPV 8.2 fl. (7.2-11.1); NUCLEATED RBCS 0 /100WBC; PLATELET COUNT* 196 thou/uL (150-400); POLYS 43.6 %; RBC 3.69 mil/uL (4.20-5.00); RDW-CV 14.8 % (10.5-14.5); WBC 6.9 thou/uL (4.0-11.0)
[2019-12-01 23:25] LABS: CALCIUM 9.2 mg/dL (8.5-10.1); CREATININE 1.1 mg/dL (0.6-1.3); POTASSIUM 4.4 mmol/L (3.5-5.1)
[2019-12-01 23:28] LABS: INR 3.5; PROTIME 34.7 Seconds (9.20-11.50)
[2019-12-01 23:36] LABS: ALBUMIN 3.9 g/dL (3.4-5.0); MAGNESIUM 2.3 mg/dL (1.8-2.4); TOTAL BILIRUBIN 0.4 mg/dL (<0.1-1.0); TOTAL PROTEIN 7.1 g/dL (6.4-8.2)
[2019-12-02 01:20] LABS: URINE BILIRUBIN NEGATIVE (Negative); URINE BLOOD NEGATIVE (Negative); URINE CLARITY CLEAR; URINE COLOR YELLOW; URINE GLUCOSE-RANDOM NEGATIVE (Negative); URINE KETONES NEGATIVE (Negative); URINE LEUKOCYTES-REFLEX NEGATIVE (Negative); URINE NITRITE-REFLEX NEGATIVE (Negative); URINE PROTEIN NEGATIVE (Negative); URINE UROBILINOGEN 0.2 E.U./dl (0.2-1.0)
[2019-12-02 04:40] VITALS: BP 167/62
[2019-12-02 05:00] VITALS: BP 160/65
[2019-12-02 08:00] VITALS: BP 129/54
--- NOTE | 2019-12-02 08:03 | NUR ---
RECEIVED PT FROM ED PER CART AT APPROX 0450. PT IS AWAKE AND ORIENTED X4. ADMISSION ASSESSMENT DONE AND CHARTED. PT IS ORIENTED ON THE ROOM SET UP AND THE USE OF CALL LIGHT. PT IS TRACING AFIB ON THE RETAIL MANAGER IN TRAINING, PT HAS BEEN BRADYCARDIC BETWEEN HIGH 30'S AND MID 50'S, PT REMAINED DIZZY WHEN LYING FLAT. ATROPINE IV GIVEN PER MAR, HR WENT UP TO 80'S-90'S. PT IS KEPT CLOSELY MONITORED.
--- NOTE | 2019-12-02 10:50 | EKG ---
[place] [address] ELECTROCARDIOGRAM REPORT Name: AGATA FERNANDEZ Room: [address] IN [facility]#: [id number] Admission: 12/02/19 Attend Phys: Han Montes, Discharge: Date of : 35 Date of Service: 12/01/19 2251 Report #: [id number] THIS REPORT FOR: //name// 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 Specialist: SHANA : 1935 Requested By: Pratibha Gustafson Order Number: [id number] MD: Neftaly Acuña Measurements Intervals [place] Rate: 50 P: AR: QRS: 0 QRSD: 85 T: QT: 465 QTc: 424 Interpretive Statements Atrial fibrillation with slow response RSR' in V1 or V2, probably normal variant Borderline repol abnrm, inferolateral leads Compared to ECG 04/03/2018 11:04:52 Ventricular premature complex(es) no longer present Prolonged QT interval no longer present Electronically Signed On 12-02-2019 10:50:20 CDT by Neftaly Acuña [email or web address] <ELECTRONICALLY SIGNED> By: Neftaly Acuña MD, [facility] 12/02/19 1050 50 225 Neftaly Acuña MD, [facility] /EPI
--- NOTE | 2019-12-02 10:52 | EKG ---
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: [facility] : 1935 Requested By: Pratibha Gustafson Order Number: [id number] MD: Neftaly Acuña Measurements Intervals [place] Rate: 52 P: MT: QRS: 18 QRSD: 85 T: 243 QT: 363 QTc: 338 Interpretive Statements Atrial fibrillation with slow response RSR' in V1 or V2, probably normal variant Nonspecific repol abnormality, diffuse leads Compared to ECG 12/01/2019 22:51:31 No significant changes Electronically Signed On 12-02-2019 10:52:12 CDT by Neftaly Acuña [email or web address] <ELECTRONICALLY SIGNED> By: Neftaly Acuña MD, FAC 12/02/19 1052 0358 0358 Neftaly Acuña MD, FAC /EPI
[2019-12-02 12:00] VITALS: BP 157/52
--- NOTE | 2019-12-02 12:30 | NUR ---
ASSUMED PT CARE REPORT RECEIVED FROM NURSE PT IS AOX4. TRACING AFIB ON EGG AND SPICE MIXER. HEART RATE IN THE 40S. PT DENIES DIZINEES. R FOREARM IV PATENT.VSS. PT ASSISTED OUT OF THE BED TO A RECLINER. CHAIR ALARM IN PLACE. FALLPRECAUTION IN PLACE. CALL LIGHT WITHIN REACH. PT HAS GOOD APPETITE .WILL CONTINUE TO MONITOR
[2019-12-02 17:00] VITALS: BP 149/70
[2019-12-02 19:30] VITALS: BP 150/60
[2019-12-03] VITALS (9 sets, daily range): BP systolic 128–155; BP diastolic 45–70
--- NOTE | 2019-12-03 04:54 | NUR ---
PT SLEPT MOST OF SHIFT. ASSESSMENT DOCUMENTED. MEDS GIVEN PER E-MAR. IV PATENT. NO REPORTS OF PAIN THIS SHIFT. HR RUNNING 30'S TO 50'S THOUGH SHIFT, DR ROWE NOTIFIED, ORDERS RECIEVED. WILL CONTINUE WITH PLAN OF CARE.
[2019-12-03 05:27] LABS: HEMATOCRIT 33.8 % (37.0-47.0); HEMOGLOBIN 11.2 gm/dL (12.0-15.0); MCH 31.7 pg (26.0-34.0); MCHC 33.3 g/dL (28.0-37.0); MCV 95.4 fL (80.0-100.0); MPV 8.1 fl. (7.2-11.1); RBC 3.54 mil/uL (4.20-5.00); RDW-CV 14.6 % (10.5-14.5); WBC 6.5 thou/uL (4.0-11.0)
[2019-12-03 05:33] LABS: INR 3.1; PROTIME 30.8 Seconds (9.20-11.50)
[2019-12-03 05:37] LABS: ALBUMIN 3.3 g/dL (3.4-5.0); CREATININE 1.1 mg/dL (0.6-1.3); MAGNESIUM 2.1 mg/dL (1.8-2.4); PHOSPHORUS* 3.1 mg/dL (2.5-4.9); POTASSIUM 3.6 mmol/L (3.5-5.1)
--- NOTE | 2019-12-03 05:46 | NUR ---
PT CONVERT TO SR AT 0356. CARDIZEM DRIP CURRENTLY RUNNING AT 5MG/HR.
--- NOTE | 2019-12-03 14:33 | CON ---
[address] [address] CONSULTATION Name: AGATA FERNANDEZ Room: [address] IN .R.#: [id number] Admission: 12/02/19 Attend Phys: Han Montes MD Discharge: Date of : 35 Report #: [id number] THIS REPORT FOR: //name// cc: Ajith Jaquez Steve T. DO ~ THIS REPORT FOR: //name// CC: Han Jaquez DO DATE OF SERVICE: 12/03/2019 CARDIOLOGY CONSULTATION HISTORY OF PRESENT ILLNESS: The patient is an 84-year-old single white female, who I was asked to see in the hospital today after she was noted to be bradycardic. The patient has a history of permanent atrial fibrillation and has been followed by my partner, Dr. Félix Louie. She apparently was never cardioverted. She has been chronically anticoagulated with warfarin. Apparently, she was on Xarelto initially, but developed GI bleeding. She has never had a bleeding after being placed on warfarin and does have her INR checked frequently. She has been on digoxin for rate control. She actually just saw Dr. Louie in the [facility]iology [facility] a year ago and he made no changes. The patient is not very active and uses a walker. She has chronic back pain. She actually just saw Dr. Jaquez last week and he made no changes. However, she notes for the past couple of days, she has felt lightheaded when she stands up. She has felt dizzy. She has had no syncope. She does have chronic shortness of breath and edema. She notes occasional episodes where her heart beats are irregular. She has had no syncope. Denied any fever or cough. She denied any chest pain. PAST MEDICAL HISTORY: She has had no major surgical procedures. She does have a history of macular degeneration. She has a history of hyperlipidemia. No history of diabetes. CURRENT MEDICATIONS: Consist of Xanax, Fosamax, digoxin 0.25 mg a day, Lasix, Cymbalta, oxycodone for back pain, pravastatin, warfarin. ALLERGIES: SHE HAS A PREVIOUS INTOLERANCE TO CODEINE AND PENICILLIN G. FAMILY HISTORY: She notes her sister of heart problems. SOCIAL HISTORY: She is , lives in [place] by herself. No smoking[place] [address] CONSULTATION Name: AGATA FERNANDEZ Room: [address]#: [id number] Admission: 12/02/19 Attend Phys: Han Montes MD Discharge: Date of : 35 Report #: [id number] REVIEW OF SYSTEMS: She has had no history of a stroke. She has allergies. No asthma, no liver disease, no kidney disease, no cancer, no chronic skin condition, no psychiatric illness. PHYSICAL EXAMINATION: GENERAL: Elderly female lying in bed. She appeared in no distress. VITAL SIGNS: She had a blood pressure of 150/70, pulse is 50 and irregular, she was afebrile. HEENT: She was anicteric. Conjunctivae are pink. Mucous membranes are moist. NECK: Neck veins not distended. No carotid bruits. CHEST: Clear to auscultation. CARDIAC: Irregular rhythm. Grade 2 systolic ejection murmur. ABDOMEN: Soft. EXTREMITIES: Had no edema. Dorsalis pedis pulse cannot be palpable. SKIN: Cool and dry. NEUROLOGIC: Nonfocal. DIAGNOSTIC DATA: ECG shows atrial fibrillation with slow response, incomplete right bundle-branch block. Her workup, she had an echocardiogram done in 2018 that showed ejection fraction 55%, left atrial enlargement, aortic sclerosis, moderate tricuspid insufficiency, PA pressure of 60 mmHg. She had a portable chest x-ray when she was admitted 2 days ago that showed cardiomegaly; otherwise, clear lung amin. CT scan of the head performed without contrast because of dizziness that showed no acute abnormality. LABORATORY WORK: Sodium 142, creatinine 1.1. Liver function studies were normal. Troponin 0.06. Her BNP was 983. Her INR is 3.5 on admission. Her digoxin level today is 1.5 on admission. Hemoglobin 11.2. IMPRESSION AND RECOMMENDATIONS: 1. Dizziness, suspect secondary to slow atrial fibrillation. At this time, I would recommend discontinuing digoxin. If she continues to have slow atrial fibrillation, then she would require pacemaker. 2. Permanent atrial fibrillation. I would continue chronic anticoagulation, maintain an INR of 2-3. 3. Hypertension. The patient is not on medications at this time. I would recommend starting an ARB. 4. Hyperlipidemia. The patient is on a statin drug. 5. Chronic back pain. The patient has received spinal injections in the past. 6. Macular degeneration. 7. Chronic edema. Suspect venous insufficiency. The patient is on Lasix. <ELECTRONICALLY SIGNED> By: Neftaly Acuña MD, [facility] 12/03/19 1433 0847 [id number] Acuña MD, FAC /nt
--- NOTE | 2019-12-03 18:26 | NUR ---
Pt. aox4, vss, sr-sb on monitor, asymptomatic, denies pain. up with assist to bed side commode. hourly rounding performed. call light and personal belongings placed within reach. pt. in bed, watching tv, in no apparent distress at this time
[2019-12-04 04:00] VITALS: BP 138/56
[2019-12-04 05:54] LABS: INR 2.4; PROTIME 23.8 Seconds (9.20-11.50)
--- NOTE | 2019-12-04 05:58 | NUR ---
PT CARE ASSUMED AT 1930. SAT MAINTAINED IN RA. ALERT AND ORIENTED X4. DENIES PAIN AND SOB. CALL LIGHT WITHIN REACH AND BED IN LOW POSITION. HOURLY ROUNDING DONE FOR PT SAFETY.
[2019-12-04 08:00] VITALS: BP 138/46
[2019-12-04] MEDS ORDERED: COZAAR 50 MG TA50 M1 PO (09:06)
[2019-12-04] MEDS ORDERED: COUMADIN 1MG TAB1 M1 PO ×2 (09:13→16:31)
[2019-12-04 13:47] VITALS: BP 135/70
[2019-12-04] MEDS ORDERED: CEFUROXIME250 MG PO (15:39)
[2019-12-04] MEDS ORDERED: REMERON30 M1 PO (15:41)
[2019-12-04 16:03] VITALS: BP 139/65
--- NOTE | 2019-12-04 18:45 | NUR ---
PT. AOX4, VSS, SFIB BUT STABLE ONMONITOR, DENIES PAIN. DISCHARGE ORDERS RECEIVED. CARENOTES, MED SCRIPT, DC SUMMARY GIVEN. DIET, ACTIVITY AND MEDS REVIEWED AND PT. VERBALIZED UNDERSTANDING. HOURLY ROUNDING DONE. CALL LIGHT AND PERSONAL BELONGINGS PLACED WITHIN REACH. PT LEFT UNIT TO ER ENTRANCE BY WC AND PICKED UP BY FAMILY MEMBER
== END 2019-12-04 17:20 | disposition home or self-care (01) | DRG 309 ==
LOC: M.ERS 22:43 → M.TBA-ER 12-02 03:38 → M.2W 12-02 03:38
PROVIDERS: Emergency Medicine; Family Medicine; Internal Medicine Cardiovascular Disease; ADMIT Internal Medicine; ATTEND Internal Medicine
DX: R00.1 Bradycardia, unspecified (principal); D68.69 Other thrombophilia; I50.32 Chronic diastolic (congestive) heart failure; I11.0 Hypertensive heart disease with heart failure; F41.9 Anxiety disorder, unspecified; J30.9 Allergic rhinitis, unspecified; K57.90 Diverticulosis of intestine, part unspecified, without perforation or abscess without bleeding; K58.9 Irritable bowel syndrome, unspecified; M81.0 Age-related osteoporosis without current pathological fracture; J32.8 Other chronic sinusitis; K21.9 Gastro-esophageal reflux disease without esophagitis; E78.00 Pure hypercholesterolemia, unspecified; I48.21 Permanent atrial fibrillation; E78.5 Hyperlipidemia, unspecified; M54.89 Other dorsalgia; G89.29 Other chronic pain; Z20.828 Contact with and (suspected) exposure to other viral communicable diseases; H35.30 Unspecified macular degeneration; Z79.891 Long term (current) use of opiate analgesic; Z79.899 Other long term (current) drug therapy; Z88.0 Allergy status to penicillin; Z88.8 Allergy status to other drugs, medicaments and biological substances; Z79.01 Long term (current) use of anticoagulants; Z88.5 Allergy status to narcotic agent; Z82.49 Family history of ischemic heart disease and other diseases of the circulatory system

== ENCOUNTER → 2020-01-03 | Outpatient (CLI) | payer MEDICARE ==
[~2020-01-03] VITALS: Ht 160 cm; Wt 50.0 kg
[~2020-01-03] MED LIST changes: +CEFUROXIME250 MG PO; +COZAAR 50 MG TA50 M1 PO; +OMEPRAZOLE40 MG PO; +REMERON30 M1 PO
[2020-01-03 10:43] LABS: HEMATOCRIT 37.3 % (37.0-47.0); HEMOGLOBIN 12.4 gm/dL (12.0-15.0); MCH 32.1 pg (26.0-34.0); MCHC 33.3 g/dL (28.0-37.0); MCV 96.2 fL (80.0-100.0); MPV 8.2 fl. (7.2-11.1); RBC 3.87 mil/uL (4.20-5.00); RDW-CV 15.1 % (10.5-14.5); WBC 6.6 thou/uL (4.0-11.0)
[2020-01-03 10:52] LABS: ANION GAP 8 mmol/L (7-16); BUN 22 mg/dL (7-18); CALCIUM 8.9 mg/dL (8.5-10.1); CHLORIDE 107 mmol/L (98-107); CO2 29 mmol/L (21-32); CREATININE 1.1 mg/dL (0.6-1.3); GLUCOSE 96 mg/dL (70-99); SODIUM 144 mmol/L (136-145)
[2020-01-03 10:54] LABS: APTT 31.9 Seconds (25.0-31.3); INR 1.7; PROTIME 17.4 Seconds (9.20-11.50)
[2020-01-03 10:57] LABS: ALBUMIN 4.3 g/dL (3.4-5.0); ALKALINE PHOSPHATASE 112 U/L (46-116); SGOT 42 U/L (15-37); SGPT 38 U/L (30-65); TOTAL BILIRUBIN 0.7 mg/dL (<0.1-1.0); TOTAL PROTEIN 7.8 g/dL (6.4-8.2)
[2020-01-03 11:07] LABS: CHOLESTEROL 144 mg/dL (<200); HDL CHOLESTEROL 71 mg/dL (>40); LDL CHOLESTEROL 56 mg/dL (<100); TRIGLYCERIDE 86 mg/dL (<150); VLDL 17 mg/dL (<40)
[2020-01-03 11:11] LABS: SERUM ASSESSMENT Clear
[2020-01-03 11:31] VITALS: BP 121/72
[2020-01-03 12:17] VITALS: BP 136/72
--- NOTE | 2020-01-03 13:19 | EKG ---
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 01/03/20 1319 1033 1033 Félix Louie MD, [facility] /EPI
[2020-01-03 14:45] VITALS: BP 123/84
[2020-01-03 15:00] VITALS: BP 124/84
[2020-01-03 15:22] VITALS: BP 135/70
[2020-01-03 15:40] VITALS: BP 133/54
--- NOTE | 2020-01-03 17:12 | CARD ---
[address] [address] CARDIAC CATH REPORT Name: AGATA FERNANDEZ Room: [facility]#: [id number] Admission: 01/03/20 Attend Phys: Félix Louie MD Discharge: Date of : 35 Report #: [id number] THIS REPORT FOR: //name// cc: Ajith Jaquez Steve T. DO ~ APPROVED REPORT Study performed: 01/03/2020 13:13:37 Patient Status: Out-Patient Room #: Exam: Insertion of Single Chamber Permanent Pacemaker Indications: Sick Sinus Syndrome/Tachy James Syndrome The patient is a 84 year-old female with a history of Atrial Fibrillation. Conscious Sedation Start time: 1348 End Time: 1413 Fentanyl 25 mcg Implanted Devices: Biotronik Edora 8 SRT, model #601743, serial #[id number] single-lead pulse generator. Biotronik Solia S 53, model #472843, serial #[id number] ventricular lead. Procedure The patient underwent informed consent. We discussed the details of the procedure including the risks, which include, but not limited to bleeding, infection, vascular damage, cardiac perforation, and pneumothorax. After informed consent was obtained the patient was brought to the interventional radiology lab. The area of the right chest was prepped and draped in sterile fashion. Local anesthesia was achieved with 1% lidocaine. Next after an initial incision was made over the right pectoralis muscle a pacemaker pocket was formed using electrocautery and blunt dissection. Next the right subclavian vein was accessed using a seeker needle. Ultimately a safety J guidewire was advanced to the area the right atrium under fluoroscopic guidance. A 7 Polish tear-away introducer was advanced over the guidewire. The guidewire and dilator were removed and a ventricular lead advanced to a secure position within the right ventricular apex. The lead was actively fixed. Thresholds were checked and deemed to be satisfactory. The tear-away introducer was removed. Adequate sensing was assured. Pacing impedance was within normal limits. There was no diaphragmatic stimulation [place] [address] CARDIAC CATH REPORT Name: JIMAGATA Gomez Room: [facility]#: [id number] Admission: 01/03/20 Attend Phys: Félix Louie MD Discharge: Date of : 35 Report #: [id number] The ventricular lead was then secured within the device pocket using the designated cuff and 0 silk suture. The pocket was then flushed with antibiotic solution. The pacemaker generator and redundant wire were then placed within the device pocket. The deep tissues were closed using 2-0 absorbable suture. The skin incision was then closed with a single subcuticular stitch of 4-0 absorbable suture. Several Steri-Strips were placed across the incision. A sterile Telfa dressing was then covered with a Tegaderm. The patient tolerated the procedure well and without complication. Electrode Parameters R Wave: 10.0 mV Ventricular Threshold: 0.5 V at 0.40 ms Ventricular Resistance: 768 ohms Conclusion 1. Atrial fibrillation with slow ventricular response rate. 2. Successful placement of a single-chamber pacemaker with ventricular lead placement. Recommendations 1. Follow-up site check in 1 week. 2. Follow-up pacemaker interrogation in 1 to 2 months. <ELECTRONICALLY SIGNED> By: Félix Louie MD, FACC 01/03/201711 11 11Micglen Louie MD, FACC /INF
--- NOTE | 2020-01-05 10:21 | NUR ---
Dr. Louie requested that patient come up to the holding area from home in order for him to evaluate the surgical site that was bleeding last evening. Site has hematoma around device with some deep purple bruising. The site it red and inflammed however no purulent drainage is coming from the incision. Dr. Louie instructed patient to remain off Coumadin for 4 days and he has a follow up appt to see the patient next thursday for a site check. Patient understands instructions given and was assisted with ambulation to the car. patient was given the department phone number for any future questions.
== END ==
LOC: M.CL 08:54
PROVIDERS: ATTEND Internal Medicine Cardiovascular Disease
DX: I49.5 Sick sinus syndrome (principal); I48.19 Other persistent atrial fibrillation; F41.9 Anxiety disorder, unspecified; M81.0 Age-related osteoporosis without current pathological fracture; I36.1 Nonrheumatic tricuspid (valve) insufficiency; F32.9 Major depressive disorder, single episode, unspecified; I11.0 Hypertensive heart disease with heart failure; I50.9 Heart failure, unspecified; K21.9 Gastro-esophageal reflux disease without esophagitis; M19.90 Unspecified osteoarthritis, unspecified site; E78.00 Pure hypercholesterolemia, unspecified; Z79.899 Other long term (current) drug therapy; Z98.890 Other specified postprocedural states; Z79.01 Long term (current) use of anticoagulants; Z88.0 Allergy status to penicillin; Z88.1 Allergy status to other antibiotic agents; Z88.5 Allergy status to narcotic agent; Z88.8 Allergy status to other drugs, medicaments and biological substances

== ENCOUNTER → 2020-04-04 | Outpatient (CLI) | payer MEDICARE ==
--- NOTE | 2020-04-04 15:48 | 2DMMODE ---
[place] [address] 2 D/M-MODE ECHOCARDIOGRAM Name: AGATA FERNANDEZ Room: [facility]#: [id number] Admission: 04/04/20 Attend Phys: Sophie Painting, Discharge: Date of : 35 Date of Service: 04/04/20 1548 Report #: [id number] THIS REPORT FOR: cc: Ajith Jaquez Steve T. DO Blick,Neftaly Sandy MD [facility] ~ ADDENDUM APPROVED REPORT Study performed: 04/04/2020 14:15:55 EXAM: Comprehensive 2D, Doppler, and color-flow Echocardiogram Patient Location: Out-Patient BSA: 1.59 HR: 76 bpm BP: 122/78 mmHg Other Information Study Quality: Good Indications Congestive Heart Failure Atrial Fibrillation 2D Dimensions IVSd: 12.46 (7-11mm) LVOT Diam: 17.95 (18-24mm) LVDd: 45.30 mm PWd: 9.95 (7-11mm) Ascending Ao: 30.84 (22-36mm) LVDs: 37.58 (25-40mm) Aortic Root: 29.41 mm Volumes Left Atrial Volume (Systole) LA ESV Index: 29.10 mL/m2 Aortic Valve AoV Peak Héctor.: 1.08 m/s AO Peak Gr.: 4.63 mmHg LVOT Max P.53 mmHg AO Mean Gr.: 2.54 mmHg LVOT Mean P.74 mmHg LVOT Max V: 0.62 m/s AO V2 VTI: 18.56 cm LVOT Mean V: 0.40 m/s JERONIMO (VTI): 1.55 cm2 LVOT V1 VTI: 11.34 [place] [address] 2 D/M-MODE ECHOCARDIOGRAM Name: AGATA FERNANDEZ Room: [facility]#: [id number] Admission: 04/04/20 Attend Phys: Sophie Painting, Discharge: Date of : 35 Date of Service: 04/04/20 1548 Report #: [id number] MV Decel. Time: 209.02 ms MV PHT: 60.61 ms MVA (PHT): 3.63 cm2 TDI Medial E' Héctor.: 0.09 m/s Lateral E' Héctor.: 0.13 m/s Pulmonary Valve PV Peak Héctor.: 0.77 m/s PV Peak Gr.: 2.37 mmHg Tricuspid Valve RAP Estimate: 5.00 mmHg TR Peak Gr.: 26.27 mmHg RVSP: 31.27 mmHg PA Pressure: 31.27 mmHg Left Ventricle The left ventricle is normal size. severe hypokinesis noted of the base of the inferior wall There is normal left ventricular wall thickness. Left ventricular systolic function is mildly decreased. LVEF is 40-45%. This study is not technically sufficient to allow evaluation of the LV diastolic function due to atrial fibrillation. Right Ventricle The right ventricle is normal size. The right ventricular systolic function is normal. Pacemaker lead is present in the right ventricle. Atria Left atrium is mildly dilated. Pacemaker lead is present in the right atrium. Right atrium is mildly dilated. Aortic Valve Aortic valve leaflets are mildly thickened. No aortic regurgitation is present. There is no aortic valvular stenosis. Mitral Valve The mitral valve is normal in structure. Mild mitral regurgitation. No evidence of mitral valve stenosis. Tricuspid Valve The tricuspid valve is normal in structure. Mild tricuspid regurgitation. Pulmonic Valve The pulmonary valve is normal in structure. There [place] [address] 2 D/M-MODE ECHOCARDIOGRAM Name: AGATA FERNANDEZ Room: [facility]#: [id number] Admission: 04/04/20 Attend Phys: Sophie Painting, Discharge: Date of : 35 Date of Service: 04/04/20 1548 Report #: [id number] valvular regurgitation. Great Vessels The aortic root is normal in size. IVC is normal in size and collapses >50% with inspiration. Pericardium There is no pericardial effusion. <Conclusion> LVEF is 40-45%. severe hypokinesis noted of the base of the inferior wall Pacemaker lead is present in the right atrium. Right atrium is mildly dilated. Aortic valve leaflets are mildly thickened. Mild mitral regurgitation. Left atrium is mildly dilated. <ELECTRONICALLY SIGNED> By: Neftaly Acuña MD, FACC 04/04/20 1548 1548 1548 Neftaly Acuña MD, FACC /INF
== END ==
LOC: M.CRD 14:00
PROVIDERS: ATTEND Nurse Practitioner
DX: I48.20 Chronic atrial fibrillation, unspecified (principal); R60.9 Edema, unspecified; I08.3 Combined rheumatic disorders of mitral, aortic and tricuspid valves

== ENCOUNTER 2020-04-05 06:24 | Inpatient (IN) | payer MEDICARE ==
[~2020-04-05] VITALS: Ht 160 cm; Wt 56.2 kg
--- NOTE | ~2020-04-05 | PROC ---
[facility] [address] [place] [address] PROCEDURE REPORT Name: AGATA FERNANDEZ Room: [place] [address] DIS IN M.R.#: [id number] Admission: 04/05/20 Attend Phys: Yuliya Smith Discharge: 04/08/20 Date of : 35 Report #: [id number] THIS REPORT FOR: //name// cc: Ajith Jaquez Steve T. DO ~ For GI report, please see the Provation report in Perceptive 7 content. By: 1200Medical Records Staff MARY /PRIETO
[2020-04-05 06:28] VITALS: BP 122/88
[2020-04-05 07:26] LABS: ABSOLUTE LYMPHOCYTES 1.2 thou/uL (0.8-5.3); ABSOLUTE MONOCYTES 1.2 thou/uL (0.0-1.2); ABSOLUTE NEUTROPHILS 8.1 thou/uL (1.6-8.1); BASOPHILS 0.2 %; EOSINOPHILS 0.3 %; HEMATOCRIT 31.6 % (37.0-47.0); HEMOGLOBIN 10.4 gm/dL (12.0-15.0); LYMPHOCYTES 11.6 %; MCH 31.2 pg (26.0-34.0); MCHC 32.9 g/dL (28.0-37.0); MCV 94.9 fL (80.0-100.0); MONOCYTES 11.4 %; MPV 7.8 fl. (7.2-11.1); NUCLEATED RBCS 0 /100WBC; PLATELET COUNT* 218 thou/uL (150-400); POLYS 76.5 %; RBC 3.33 mil/uL (4.20-5.00); RDW-CV 14.6 % (10.5-14.5); WBC 10.6 thou/uL (4.0-11.0)
[2020-04-05 07:30] LABS: CALCIUM 8.9 mg/dL (8.5-10.1); CREATININE 1.4 mg/dL (0.6-1.3); POTASSIUM 4.1 mmol/L (3.5-5.1)
[2020-04-05 07:34] LABS: ALBUMIN 3.6 g/dL (3.4-5.0); TOTAL BILIRUBIN 0.4 mg/dL (<0.1-1.0); TOTAL PROTEIN 7.2 g/dL (6.4-8.2)
[2020-04-05 07:36] LABS: APTT 39.2 Seconds (25.0-31.3); INR 3.3; PROTIME 32.9 Seconds (9.20-11.50)
--- NOTE | 2020-04-05 09:22 | NUR ---
JANNET NOTIFIED UPON PT RETURN FROM CT. PT CONNECTED TO MONITOR
[2020-04-05 10:02] LABS: URINE BILIRUBIN NEGATIVE (Negative); URINE BLOOD 2+ (Negative); URINE CLARITY CLEAR; URINE COLOR YELLOW; URINE GLUCOSE-RANDOM NEGATIVE (Negative); URINE KETONES TRACE (Negative); URINE LEUKOCYTES-REFLEX NEGATIVE (Negative); URINE NITRITE-REFLEX NEGATIVE (Negative); URINE PROTEIN NEGATIVE (Negative); URINE UROBILINOGEN 0.2 E.U./dl (0.2-1.0)
[2020-04-05 10:22] LABS: BACTERIA-REFLEX 1-9 Few /HPF (None Seen); CASTS None Seen /LPF (None Seen); CRYSTALS None Seen /LPF (None Seen); MUCUS 0-3 Light strn/LPF (None Seen); SQUAMOUS 0-3 Few /LPF (0-3); URINE RBC 3-10 Few /HPF (0-2); URINE WBC-REFLEX 0-5 Rare /HPF (0-5)
--- NOTE | 2020-04-05 10:54 | EKG ---
[place] [address] ELECTROCARDIOGRAM REPORT Name: AGATA FERNANDEZ Room: [place] [address] ADM IN 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: : 1935 Requested By: Jr Palma Order Number: [id number] MD: Neftaly Acuña Measurements Intervals [place] Rate: 111 P: 0 CO: 138 QRS: 37 QRSD: 84 T: -27 QT: 339 QTc: 461 Interpretive Statements Ventricular-paced complexes with atrial fibrillation nonspecific st segment changes Borderline repolarization abnormality Compared to ECG 01/03/2020 10:33:55 ventricular paced beats now noted Electronically Signed On 04-05-2020 10:53:55 LUMBER STRAIGHTENER by Neftaly Acuña [email or web address] <ELECTRONICALLY SIGNED> By: Neftaly Acuña MD, [facility] 04/05/20 1053 0631 0631 Neftaly Acuña MD, [facility] /EPI
[2020-04-05 16:20] VITALS: BP 141/120
--- NOTE | 2020-04-05 16:37 | NUR ---
PT ADMITTED WITH COLITIS AND GI BLLED. PT ORIENTED TO ROOM. HEART MONITORED. FALL RISK PRECAUTIONS IN PLACE. WILL CONTINUE TO MONITOR.
[2020-04-05 20:49] VITALS: BP 126/65
[2020-04-06] VITALS (7 sets, daily range): BP systolic 91–150; BP diastolic 50–81
[2020-04-06 04:44] LABS: ABSOLUTE EOSINOPHILS 0.1 thou/uL (0.0-0.7); ABSOLUTE LYMPHOCYTES 1.6 thou/uL (0.8-5.3); ABSOLUTE MONOCYTES 1.2 thou/uL (0.0-1.2); ABSOLUTE NEUTROPHILS 5.8 thou/uL (1.6-8.1); BASOPHILS 0.3 %; EOSINOPHILS 1.4 %; HEMATOCRIT 28.1 % (37.0-47.0); HEMOGLOBIN 9.3 gm/dL (12.0-15.0); LYMPHOCYTES 18.9 %; MCH 31.4 pg (26.0-34.0); MCHC 33.1 g/dL (28.0-37.0); MCV 94.9 fL (80.0-100.0); MONOCYTES 13.4 %; MPV 7.7 fl. (7.2-11.1); NUCLEATED RBCS 0 /100WBC; PLATELET COUNT* 176 thou/uL (150-400); RBC 2.96 mil/uL (4.20-5.00); RDW-CV 14.6 % (10.5-14.5); WBC 8.7 thou/uL (4.0-11.0)
[2020-04-06 05:07] LABS: ALBUMIN 2.9 g/dL (3.4-5.0); CALCIUM 8.3 mg/dL (8.5-10.1); POTASSIUM 3.8 mmol/L (3.5-5.1); TOTAL BILIRUBIN 0.6 mg/dL (<0.1-1.0)
--- NOTE | 2020-04-06 08:19 | NUR ---
PT IS ABLE TO COMMUNICATE HER NEEDS TO STAFF EFFECTIVELY. CURRENT PAIN MEDICATION REGIMEN HAS BEEN ADEQUATE FOR CONTROLLING HER PAIN UP TO 0700 THIS MORNING. GI IS CONSULTED. SHE DID HAVE ONE BLOOD TINGED STOOL OVERNIGHT.
--- NOTE | 2020-04-06 11:55 | NUR ---
CM SPOKE TO THE PT TO DISCUSS CM ASSESSMENT, D/C PLANNING, AND TO INFORM OF THE ROLE OF CM. PT A&O, INDEPENDENT WIH ADL'S, AND ACTIVE. PT RESIDES AT HOME ALONE IN HER INDEPENDENT LIVING APARTMENT AT [employer]. PT INFORMS THAT HER NIECE IS HER SOURCE OF SUPPORT AND ASSIST WITH TRANSPORTATION TO APPOINTMENTS. PT OWNS A WALKER, BUT DOES NOT USE IT FOR MOBILITY. PT HAS 0 HX OF HH OR SNF. NO D/C PLANNING NEEDS ANTICIPATED. CM WILL REMAIN AVAILABLE TO ASSIST AND FOLLOW NEEDED.
--- NOTE | 2020-04-06 17:27 | EKG ---
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 04/06/20 1727 1601 1601 Neftaly Acuña MD, [facility] /EPI
--- NOTE | 2020-04-06 18:30 | NUR ---
RECEIVED REPORT. ASSUMED CARE OF PT AROUND 0730. AM ASSESSMENT AND VITALS COMPELTED CHARTED. MEDS PER EMAR. MACHINE OPERATIONS SUPERVISOR IN PLACE. PT TO HAVE EGD AND COLONOSCOPY TOMORROW. BOWEL PREP IN PROGRESS - GOING WELL. PT UP AD KEYLA TO THE BEDSIDE COMMODE. TOLERATING CLEARS. NIECE IN TO SEE PT THIS AFTERNOON. HEART RATE ELEVETED THROUGHOUT SHIFT WITH INCRERASE TOWARDS THE EVENING. DR QUINTERO NOTIFIED AND PO DILTIAZEM ORDERED AND GIVEN. PT CURRENTLY SITTING UP ON THE SIDE OF THE BED. CALL LIGHT IS WITHIN REACH. HOURLY ROUNDING PERFORMED. LOW FALL PRECAUTIONS IN PLACE.
[2020-04-07 04:00] VITALS: BP 136/50
[2020-04-07 05:09] LABS: ABSOLUTE EOSINOPHILS 0.2 thou/uL (0.0-0.7); ABSOLUTE NEUTROPHILS 5.8 thou/uL (1.6-8.1); BASOPHILS 0.4 %; EOSINOPHILS 2.4 %; HEMATOCRIT 30.2 % (37.0-47.0); HEMOGLOBIN 9.7 gm/dL (12.0-15.0); LYMPHOCYTES 22.3 %; MCH 30.9 pg (26.0-34.0); MCHC 32.1 g/dL (28.0-37.0); MCV 96.4 fL (80.0-100.0); MONOCYTES 10.7 %; MPV 7.9 fl. (7.2-11.1); NUCLEATED RBCS 0 /100WBC; PLATELET COUNT* 188 thou/uL (150-400); POLYS 64.2 %; RBC 3.14 mil/uL (4.20-5.00); RDW-CV 15.3 % (10.5-14.5); WBC 9.1 thou/uL (4.0-11.0)
[2020-04-07 08:04] VITALS: BP 103/42
--- NOTE | 2020-04-07 09:28 | NUR ---
PT IS ABLE TOP COMMUNICATE HER NEEDS TO STAFF EFFECTIVELY. CURRENT PAIN MEDICATION REGIMEN HAS BEEN ADEQUATE FOR CONTROLLING HER PAIN UP TO O7OO THIS MORNING. SHE HAS FINISHED HER BOWEL PREP BEFORE 0000 AND HAS BEEN NPO SINCE THEN FOR AN EGD/COLONOSCOPY SCHEDULED FOR TODAY.
[2020-04-07 15:57] VITALS: BP 117/50
--- NOTE | 2020-04-07 16:32 | NUR ---
PT HAD COLONOSCOPY/EGD TODAY. SEE REPORT. IVF INFUSING. UP TO BSC AD KEYLA WITH STEADY GAIT. DENIES PAIN.
[2020-04-07 21:19] VITALS: BP 109/56
[2020-04-07 22:40] VITALS: BP 111/51
[2020-04-08] VITALS: BP 103/52
[2020-04-08 04:31] VITALS: BP 107/45
[2020-04-08 05:37] LABS: CALCIUM 7.7 mg/dL (8.5-10.1); CREATININE 0.9 mg/dL (0.6-1.3); POTASSIUM 3.2 mmol/L (3.5-5.1)
[2020-04-08 07:51] VITALS: BP 96/60
--- NOTE | 2020-04-08 09:10 | NUR ---
PT IS ABLE TO COMMUNICATE HER NEEDS TO STAFF EFFECTIVELY. SHE HAS DENIED THE NEED FOR PAIN MEDICATION UP TO THIS TIME. IV FLUIDS MAINTAINED. POSSIBLE D/C SOON. PT HAS NOT YET HAD A BM POST EGD/COLONOSCOPY.
[2020-04-08] MEDS ORDERED: CARDIZEM CD120 MG PO ×2 (09:52)
[2020-04-08] MEDS ORDERED: KEFLEX500 M1 PO ×2 (09:52)
[2020-04-08] MEDS ORDERED: CIPRO500 MG PO ×2 (09:52)
[2020-04-08 10:19] VITALS: BP 96/60
[2020-04-08 11:15] VITALS: BP 96/60
--- NOTE | 2020-04-08 12:34 | NUR ---
PT DISCHARGED HOME. COPY OF DISCHARGE PAPERWORK TO PT WITH EXPLAINATION. PT VERBALIZED UNDERSTANDING. PRESCRIPTIONS SENT TO PT PHARMACY BY DR QUINTERO. IV ACCESS REMOVED.
[2020-04-08 13:38] VITALS: BP 96/60
--- NOTE | 2020-04-11 13:12 | PATH ---
[facility] [address] [place] [address] PATHOLOGY RPT PROCEDURE Name: ARIANA ENAMORADO Room: [place] [address] DIS IN M.R.#: [id number] Admission: 04/05/20 Date of : 35 Discharge: 04/08/20 Report #: [id number] Path Case #: [id number] [facility] Accession Number: [id number] . 01 Material submitted: . PART A: cecum - CECAL POLYP BIOPSY PART B: colon - SIGMOID ULCER BIOPSY R/O ISCHEMIC COLITIS. Modifiers: sigmoid . 01 Clinician provided ICD-10: K92.2 K55.059 . 01 Clinical history: . GI BLEED, COLITIS . 02 Diagnosis: A. Cecal polyp biopsy: - Tubular adenoma, negative for high-grade dysplasia. . B. Sigmoid ulcer biopsy: - Active colitis with mucosal necrosis typical of ischemic colitis, negative for granulomas, viral inclusions and dysplasia. See comment. . (ELIZABETH:lexus; 04/11/2020) MBR 04/11/2020 1122 Local . 02 Comment: B. The sigmoid ulcer biopsy (B) shows benign colonic mucosa with active inflammation and michael mucosal necrosis and areas of superficial atrophy/necrosis with preservation of the deeper aspects of crypts where the lamina propria is condensed and possibly fibrotic, also in association with fresh hemorrhage. There is no significant basal lymphoplasmacytosis or crypt distortion to elevate a concern for inflammatory bowel disease. (ELIZABETH:lexus; 04/11/2020) . 02 Electronically signed: . Rodney Sanchez MD, Pathologist NPI- [id number] . 01 Gross description: . A. The specimen is received in formalin, labeled "Ariana Enamorado, cecal polyp biopsy". Received is a moderate amount of pale juárez to white-juárez vegetative material admixed with pale juárez soft tissue measuring 3.0 x 1.4 x 0.4 cm in aggregate dimensions. The specimen is submitted entirely in cassettes A1 and A2. . B. The specimen is received in formalin, labeled "Ariana Enamorado, [place] [address] PATHOLOGY RPT PROCEDURE Name: ARIANA ENAMORADO Room: [place] [address] DIS IN M.R.#: [id number] Admission: 04/05/20 Date of : 35 Discharge: 04/08/20 Report #: [id number] Path Case #: [id number] ulcer biopsy, R/O ischemic colitis". Received are three segments of pale juárez soft tissue ranging in size from 0.4 to 0.5 cm in maximum dimensions. The specimen is submitted entirely in cassette B1. (CAA; 04/10/2020) QAC/QAC 04/10/2020 1153 Local . 02 Pathologist provided ICD-10: D12.0, K52.9 . 02 CPT . 562817, 612625 Specimen Comment: A courtesy copy of this report has been sent to [phone] Specimen Comment: [phone], Specimen Comment: Report sent to ,DR QUINTERO / DR HDZ Performed at: [address], [place] [id number] MD Flip Owens MD Phone: [phone] Performed at: [facility] [address], [place], [place] [address] MD Rodney Sanchez MD Phone: [phone]
== END 2020-04-08 13:39 | disposition home or self-care (01) | DRG 393 ==
LOC: M.ERS 06:24 → M.TBA-ER 10:14 → M.2W 10:14
PROVIDERS: Family Medicine; ADMIT Internal Medicine; ATTEND Internal Medicine
PROC: 0DBK8ZZ Excision of Ascending Colon, Via Natural or Artificial Opening Endoscopic (ICD-10-PCS; principal; 2020-04-07)
PROC: 0DJ08ZZ Inspection of Upper Intestinal Tract, Via Natural or Artificial Opening Endoscopic (ICD-10-PCS; principal; 2020-04-07)
PROC: 0DBH8ZZ Excision of Cecum, Via Natural or Artificial Opening Endoscopic (ICD-10-PCS; principal; 2020-04-07)
PROC: 0DBN8ZX Excision of Sigmoid Colon, Via Natural or Artificial Opening Endoscopic, Diagnostic (ICD-10-PCS; principal; 2020-04-07)
DX: K55.039 Acute (reversible) ischemia of large intestine, extent unspecified (principal); K57.31 Diverticulosis of large intestine without perforation or abscess with bleeding; K92.1 Melena; D62 Acute posthemorrhagic anemia; N17.9 Acute kidney failure, unspecified; I74.9 Embolism and thrombosis of unspecified artery; K63.3 Ulcer of intestine; I11.0 Hypertensive heart disease with heart failure; I50.9 Heart failure, unspecified; I48.91 Unspecified atrial fibrillation; F41.9 Anxiety disorder, unspecified; M81.0 Age-related osteoporosis without current pathological fracture; M19.90 Unspecified osteoarthritis, unspecified site; K63.5 Polyp of colon; K64.4 Residual hemorrhoidal skin tags; K52.9 Noninfective gastroenteritis and colitis, unspecified; E78.00 Pure hypercholesterolemia, unspecified; K21.9 Gastro-esophageal reflux disease without esophagitis; Z20.828 Contact with and (suspected) exposure to other viral communicable diseases; Z95.0 Presence of cardiac pacemaker; Z79.01 Long term (current) use of anticoagulants; Z79.899 Other long term (current) drug therapy; Z28.21 Immunization not carried out because of patient refusal; Z88.1 Allergy status to other antibiotic agents; Z88.0 Allergy status to penicillin; Z88.8 Allergy status to other drugs, medicaments and biological substances

== ENCOUNTER 2020-04-13 13:54 | Inpatient (IN) | payer MEDICARE ==
[~2020-04-13] VITALS: Ht 160 cm; Wt 65.8 kg
[~2020-04-13 13:54] MED LIST changes: +CIPRO500 MG PO; +KEFLEX500 M1 PO
[2020-04-13 14:05] VITALS: BP 74/32
[2020-04-13] MEDS ORDERED: TOPROL XL25 MG PO ×2 (14:20)
[2020-04-13 14:54] LABS: ABSOLUTE EOSINOPHILS 0.1 thou/uL (0.0-0.7); ABSOLUTE LYMPHOCYTES 1.2 thou/uL (0.8-5.3); ABSOLUTE MONOCYTES 0.8 thou/uL (0.0-1.2); ABSOLUTE NEUTROPHILS 3.8 thou/uL (1.6-8.1); BASOPHILS 0.5 %; EOSINOPHILS 1.3 %; HEMATOCRIT 30.9 % (37.0-47.0); HEMOGLOBIN 10.2 gm/dL (12.0-15.0); LYMPHOCYTES 20.1 %; MCH 30.9 pg (26.0-34.0); MCHC 32.9 g/dL (28.0-37.0); MPV 7.5 fl. (7.2-11.1); NUCLEATED RBCS 0 /100WBC; PLATELET COUNT* 251 thou/uL (150-400); POLYS 65.1 %; RBC 3.29 mil/uL (4.20-5.00); RDW-CV 14.7 % (10.5-14.5); WBC 5.8 thou/uL (4.0-11.0)
[2020-04-13 15:02] LABS: CALCIUM 8.6 mg/dL (8.5-10.1); CREATININE 1.1 mg/dL (0.6-1.3); POTASSIUM 3.2 mmol/L (3.5-5.1)
[2020-04-13 15:10] LABS: ALBUMIN 3.5 g/dL (3.4-5.0); TOTAL BILIRUBIN 0.5 mg/dL (<0.1-1.0)
[2020-04-13 15:26] LABS: URINE BILIRUBIN NEGATIVE (Negative); URINE BLOOD NEGATIVE (Negative); URINE CLARITY CLEAR; URINE COLOR YELLOW; URINE GLUCOSE-RANDOM NEGATIVE (Negative); URINE KETONES NEGATIVE (Negative); URINE LEUKOCYTES-REFLEX NEGATIVE (Negative); URINE NITRITE-REFLEX NEGATIVE (Negative); URINE PROTEIN NEGATIVE (Negative); URINE UROBILINOGEN 0.2 E.U./dl (0.2-1.0)
--- NOTE | 2020-04-13 17:05 | EKG ---
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: : 1935 Requested By: Emilio Means Order Number: [id number] MD: Félix Louie Measurements Intervals [place] Rate: 80 P: IN: QRS: 32 QRSD: 91 T: 14 QT: 415 QTc: 479 Interpretive Statements Afib/flut and V-paced complexes No further rhythm analysis attempted due to paced rhythm Borderline prolonged QT interval Compared to ECG 04/06/2020 16:01:33 No significant changes Electronically Signed On 04-13-2020 17:05:42 MOLDED GOODS INSPECTOR TRIMMER by Félix Louie [email or web address] <ELECTRONICALLY SIGNED> By: Félix Louie MD, FACC 04/13/20 1705 1426 1426 Félix Louie MD, FAC /EPI
[2020-04-13 17:54] VITALS: BP 117/70
[2020-04-13 18:02] VITALS: BP 138/64
--- NOTE | 2020-04-13 18:42 | NUR ---
PT ADMITTED TO ROOM 231 VIA CART FROM ED AT APPROXIMATELY 1800. REPORT RECEIVED FROM KRYSTA CUEVAS. PT ORIENTED TO ROOM AND CALL LIGHT. ADMISSION ASSESSMENT AND HISTORY CHARTED. HOME MEDICATIONS RECONCILED. NIECE AT BEDSIDE. PT A&0X4, DENIES ANY PAIN OR SHORTNESS OF BREATH. ON RA SAT 97%. PT UP WITH SBA TO BATHROOM. PT STATES SHE LIVES AT [facility]. 2+ EDEMA NOTED TO BILATERAL LE'S. PROTONIX GTT INFUSING. PT STATES SHE HAS HAD BLACK TARRY DIARRHEA SINCE HER COLONOSCOPY LAST WEEK. OCCULT BLOOD NEGATIVE. NO STOOLS NOTED SINCE BEEN ON FLOOR. MEDS PER JUL. PT REPOSITIONS SELF. HOURLY ROUNDING OBSERVED. BED IN LOW POSITION. CALL LIGHT WITHIN REACH. WILL CONTINUE PLAN OF CARE.
[2020-04-13 19:23] LABS: APTT 33.3 Seconds (25.0-31.3); INR 1.8; PROTIME 18.5 Seconds (9.20-11.50)
[2020-04-13 20:00] VITALS: BP 119/59
[2020-04-14] VITALS (8 sets, daily range): BP systolic 98–144; BP diastolic 47–87
[2020-04-14 09:19] LABS: HEMATOCRIT 28.6 % (37.0-47.0); HEMOGLOBIN 9.4 gm/dL (12.0-15.0); MCH 30.7 pg (26.0-34.0); MCHC 32.9 g/dL (28.0-37.0); MCV 93.4 fL (80.0-100.0); MPV 7.4 fl. (7.2-11.1); RBC 3.06 mil/uL (4.20-5.00); RDW-CV 14.7 % (10.5-14.5); WBC 5.6 thou/uL (4.0-11.0)
[2020-04-14 09:24] LABS: CALCIUM 8.1 mg/dL (8.5-10.1); CREATININE 1.2 mg/dL (0.6-1.3); POTASSIUM 3.3 mmol/L (3.5-5.1)
--- NOTE | 2020-04-14 09:28 | NUR ---
ASSUMED CARE OF PT AT 0730. PT SITTING UP IN BED WAITING FOR BREAKFAST. A&0X4, COMPLAINS OF PAIN TO BACK-TREATED WITH SCHEDULED OXY WITH COMPLETE RELIEF. TRACING AFIB WITH PVCS AND V PACED COMPLEXES ON THE CUTTER WET MACHINE. ON RA SAT 96%. DENIES ANY SHORTNESS OF BREATH. PT UP WITH SBA TO BATHROOM. PT RECEIVING IV PROTONIX. TUBIGRIPS TO BILATERAL LE'S. PT GOAL FOR TODAY IS PT EVAL, COMPLETE ORTHOSTATS AND REMAIN FREE FROM BLOODY STOOLS. PT DENIES ANY STOOLS OVER NIGHT. AM ASSESSMENT CHARTED. MEDICATIONS PER JUL. PT REPOSITIONS SELF. HOURLY ROUNDING OBSERVED. BED IN LOW POSITION. CALL LIGHT WITHIN REACH. WILL CONTINUE PLAN OF CARE.
[2020-04-15 04:33] LABS: INR 1.7; PROTIME 17.8 Seconds (9.20-11.50)
[2020-04-15 07:30] VITALS: BP 106/64
[2020-04-15] MEDS ORDERED: METOPROLOL TART25 MG PO ×2 (08:32)
[2020-04-15] MEDS ORDERED: LASIX 20 MG TAB20 MG PO ×2 (08:32)
[2020-04-15] MEDS ORDERED: FLORASTOR250 MG PO ×2 (08:32)
--- NOTE | 2020-04-15 09:20 | NUR ---
ASSUMED CARE OF PT AT 0730. PT SITTING UP IN BED WAITING FOR BREAKFAST. A&0X4, DENIES ANY PAIN OR SHORTNESS OF BREATH AT THIS TIME. PT STATES SHE HAD DARK TARRY STOOL LAST NIGHT. UNWITNESSED BY NURSING. PT TRACING AFIB/VPACED COMPLEXES ON THE RN OTOLARYNGOLOGY. ON RA SAT 92%. PT UP WITH SBA TO BATHROOM. EDEMA AND REDNESS NOTED TO BILATERAL LE'S-TUBIGRIPS IN PLACE TO BLE. PT GOAL FOR TODAY IS REMAIN FREE FROM BLOODY STOOLS, MONITOR ORTHOSTATS AND LABS AND DISCHARGE PLANNING. AM ASSESSMENT CHARTED. MEDICATIONS PER JUL. PT REPOSITIONS SELF. HOURLY ROUNDING OBSERVED. BED IN LOW POSITION. CALL LIGHT WITHIN REACH. WILL CONTINUE PLAN OF CARE.
[2020-04-15 12:00] VITALS: BP 106/64; BP 140/64
--- NOTE | 2020-04-15 13:42 | NUR ---
DISCHARGE ORDERS RECEIVED. DISCHARGE INSTRUCTIONS, CARE NOTES, SCRIPTS AND FOLLOW UP APPTS GIVEN TO PT. PT COMMUNICATES UNDERSTANDING OF DISCHARGE TEACHING. SCRIPTS SENT TO PHARMACY PER DR VASQUEZ. IV AND MEDICAL CASE MANAGER REMOVED. PT DISCHARGED WITH ALL BELONGINGS AND PAPERWORK VIA WHEELCHAIR WITH NURSING STAFF TO NIECE OWN PERSONAL VEHICLE. PT REFUSING HOME HEALTH. EDUCATION GIVEN.
== END 2020-04-15 13:43 | disposition home or self-care (01) | DRG 314 ==
LOC: M.ERS 13:54 → M.TBA-ER 16:16 → M.2W 17:58
PROVIDERS: Emergency Medicine Emergency Medical Services; ADMIT Internal Medicine; ATTEND Internal Medicine
DX: I95.9 Hypotension, unspecified (principal); I50.33 Acute on chronic diastolic (congestive) heart failure; K55.9 Vascular disorder of intestine, unspecified; K92.2 Gastrointestinal hemorrhage, unspecified; F41.9 Anxiety disorder, unspecified; K58.9 Irritable bowel syndrome, unspecified; R19.7 Diarrhea, unspecified; I48.91 Unspecified atrial fibrillation; M81.0 Age-related osteoporosis without current pathological fracture; I11.0 Hypertensive heart disease with heart failure; K21.9 Gastro-esophageal reflux disease without esophagitis; E78.00 Pure hypercholesterolemia, unspecified; M19.90 Unspecified osteoarthritis, unspecified site; Z20.828 Contact with and (suspected) exposure to other viral communicable diseases; Z95.0 Presence of cardiac pacemaker; Z79.01 Long term (current) use of anticoagulants; Z79.899 Other long term (current) drug therapy; Z88.5 Allergy status to narcotic agent; Z88.0 Allergy status to penicillin; Z88.8 Allergy status to other drugs, medicaments and biological substances

== ENCOUNTER 2020-08-31 17:14 | Emergency (ER) | payer MEDICARE ==
[~2020-08-31] VITALS: Ht 165.1 cm; Wt 59.8 kg
[~2020-08-31 17:14] MED LIST changes: +LASIX 20 MG TAB20 MG PO; +METOPROLOL TART25 MG PO; +TOPROL XL25 MG PO
[2020-08-31] MEDS ORDERED: COREG6.25 MG PO (17:20)
[2020-08-31] MEDS ORDERED: PERCOCET 5-3251 EACH PO (18:33)
[2020-08-31 18:45] VITALS: BP 143/78
--- NOTE | 2020-09-03 11:16 | EKG ---
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 Adviser: : 1935 Requested By: Emilio Means Order Number: [id number] Reading MD: Yuniel Cuirel Measurements Intervals [place] Rate: 76 P: 0 IA: 176 QRS: -15 QRSD: 97 T: -48 QT: 411 QTc: 463 Interpretive Statements Atrial fibrillationflutter with moderately frequent paced complexes No further rhythm analysis attempted due to paced rhythm Borderline repolarization abnormality Borderline prolonged QT interval Compared to ECG 04/13/2020 14:26:54 Atrial fibrillation persists Electronically Signed On 09-03-2020 11:15:57 CDT by Yuniel Curiel [email or web address] <ELECTRONICALLY SIGNED> By: Yuniel Curiel MD, [facility] 09/03/20 1115 1724 1724 Yuniel Curiel MD, [facility] /EPI
== END 2020-08-31 18:46 | disposition home or self-care (01) ==
LOC: M.ERS 17:14
DX: S22.31XA Fracture of one rib, right side, initial encounter for closed fracture (principal); I48.91 Unspecified atrial fibrillation; I11.0 Hypertensive heart disease with heart failure; I50.9 Heart failure, unspecified; K21.9 Gastro-esophageal reflux disease without esophagitis; M19.90 Unspecified osteoarthritis, unspecified site; E78.00 Pure hypercholesterolemia, unspecified; Z88.0 Allergy status to penicillin; Z88.5 Allergy status to narcotic agent; Z88.6 Allergy status to analgesic agent; Z88.8 Allergy status to other drugs, medicaments and biological substances; W22.8XXA Striking against or struck by other objects, initial encounter; Y93.89 Activity, other specified; Y92.89 Other specified places as the place of occurrence of the external cause; Y99.8 Other external cause status